=== PATIENT | male | born 2000 | race Caucasian/White ===

== ENCOUNTER 2021-06-25 15:54 | Emergency (ER) | payer OTHER, SELFPAY ==
[2021-06-25 16:04] VITALS: BP 112/71; PULSE 102; RESP 16; TEMP 37.1; O2SAT 99
--- NOTE | 2021-06-25 17:03 | ED.URI ---
HPI - URI/Sore Throat General Chief Complaint: Upper Respiratory Infection Stated Complaint: sinus issues Source: patient and RN notes reviewed Limitations: no limitations History of Present Illness HPI Narrative: The unvaccinated patient, a smoker/nondrinker, presents with with URI symptoms. Patient states he has a 5-day history of measured fever to 89 p.o., associated with nausea, cough, congestion and definite loss of smell/anosmia [he tried smelling Lysol]. No vomiting/diarrhea, chest pain, shortness of breath, earache, calf pain/edema, wheezing. Symptoms are mild to moderate, slightly worse at night when sleeping/supine Related Data Allergies Allergy/AdvReac Type Severity Reaction Status Date / Time No Known Drug Allergies Allergy Unknown Other Verified 06/25/21 16:03 Review of Systems Review of Systems: General/Constitutional: No weight loss, REPORTS fever Eyes: N0: Redness,discharge Ears/Nose/Throat: No: Epistaxis,ear discharge Respiratory: Denies: Hemoptysis Gastrointestinal: No Vomiting, Bleeding-rectal Skin: No Lumps, eruption Neurologic: No Focal Weakness,Sz Hematologic: Denies: Petechiae/Purpura Psychiatric: No: Suicida ideationl All Other Systems: Reviewed and Negative PMFSH Comments At time of signature, agree with nursing past medical, surgical, social and family history. There is no relevant family history pertinent to the presenting complaint Exam Narrative: General Appearance: Well appearing, Well nourished EYE: PERRLA, Conjunctiva clear Ears: Auditory canal normal, TM normal Nose: Rhinorrhea, Mucousal erythema Mouth/Throat: MM moist, Uvula midline, Pharyngeal erythema Neck: Supple, No adenopathy Respiratory: No respiratory distress, Breath sounds equal, Clear to auscultation Cardiovascular: RRR, No JVD Musculoskeletal: Non tender, Normal strength Skin: Warm, Dry Neurological: A&O x3, CN II-XII intact Psychiatric: Normal mood, Normal affect Course Vital Signs Vital signs: Vital Signs Temperature 98.8 F 06/25/21 16:04 Pulse Rate 102 H 06/25/21 16:04 Respiratory Rate 16 06/25/21 16:04 Blood Pressure 112/71 06/25/21 16:04 Pulse Oximetry 99 06/25/21 16:04 Temperature 98.8 F 06/25/21 16:04 Pulse Rate 102 H 06/25/21 16:04 Respiratory Rate 16 06/25/21 16:04 Blood Pressure 112/71 06/25/21 16:04 Pulse Oximetry 99 06/25/21 16:04 MDM - URI/Sore Throat Lab Data Labs: Lab Results 06/25/21 Range/Units 16:11 POC SARS CoV-2 Ag Negative (Negative) Discharge Plan Discharge Clinical Impression: COVID-19 determined by clinical diagnostic criteria Patient Disposition: Home, Self-Care Condition: Stable Instructions: Antibiotic Form Additional Instructions: Isolate yourself, and inform close contacts who then should quarantine Take supplement vitamins D, B, C, zinc and baby aspirin daily Call your PMD for consideration for antivirals, monoclonal antibodies Consider getting pulse ox and return for walking pulse oximetry <93% COnsider reviewing youTube 'If you get covid Dr Alvarenga Consider allow low fevers, then begin treat for fevers > 102 with tylenol You may use OTC preparations like Flonase, cough syrups, etc Prescriptions: New benzonatate 100 mg capsule 100 mg PO TID PRN (Reason: cough) Qty: 20 RF: 2 azelastine 137 mcg (0.1 %) aerosol,spray 137 mcg NASAL Q12H Qty: 30 RF: 0 promethazine-codeine 6.25-10 mg/5 mL syrup 5 - 7.5 ml PO Q6H PRN (Reason: cough) Qty: 118 RF: 0 Other Ambulatory Orders: SARS-CoV-2 RNA, Qual RT-PCR (Routine) Location: Determined by Patient Ordered By: Jamir Mccollum Follow-up/Referrals: UNKNOWN,DOCTOR [Primary Care Provider] -
== END 2021-06-25 17:12 | disposition home or self-care (01) ==
PROVIDERS: Emergency Provider Emergency Medicine
DX: U07.1 COVID-19 (principal)
CPT/HCPCS: 87426; 99203; C9803; G0463